=== PATIENT | female | born 1985 | race Caucasian/White ===

== ENCOUNTER 2018-07-04 20:47 | Inpatient (IN) | payer SELFPAY ==
[~2018-07-04] VITALS: Ht 172.7 cm; Wt 117.9 kg
[2018-07-04] MEDS ORDERED: LACTATED RINGERS 1,000 ML IV STA (23:06)
[2018-07-05] MEDS ORDERED: DEXT 5%/LR + PITOCIN 20UNITS/L 1,000 ML IV SCH (02:18)
[2018-07-05] MEDS ORDERED: MISOPROSTOL 100MCG TABLET VG SCH (02:30)
[2018-07-05] MEDS ORDERED: LIDOCAINE HCL 1% 20ML VIAL (Pyxis) INJ INFIL SCH (02:30)
[2018-07-05 02:38] LABS: *AMPHETAMINES SCREEN URINE NEGATIVE (NEGATIVE); *BARBITURATES SCREEN URINE NEGATIVE (NEGATIVE)
[2018-07-05 02:39] LABS: *BENZODIAZEPINES SCREEN URINE NEGATIVE (NEGATIVE); *COCAINE SCREEN URINE NEGATIVE (NEGATIVE); CANNABINOID URINE SCREEN NEGATIVE (NEGATIVE); METHADONE URINE SCREEN NEGATIVE (NEGATIVE); OPIATES URINE SCREEN NEGATIVE (NEGATIVE); PHENCYCLIDINE URINE SCREEN NEGATIVE (NEGATIVE)
[2018-07-05] MEDS ORDERED: AMPICILLIN 2,000 MG in SODIUM CHLORIDE 0.9% 100 ML IV NR (03:00)
[2018-07-05 03:26] LABS: BASOPHILS % 0.4 % (0.0-2.0); HEMATOCRIT. 36.2 % (36.0-48.0); HEMOGLOBIN. 11.7 g/dL (12.0-16.0); LYMPHOCYTES % 24.3 % (20.0-50.0); MEAN CORPUSCULAR HEMOGLOBIN 28.7 pg (28.0-32.0); MEAN CORPUSCULAR VOLUME 88.6 fL (81.0-99.0); MEAN PLATELET VOLUME 7.4 fl (7.4-10.4); MONOCYTES % 5.5 % (2.0-8.0); NEUTROPHILS % 68.8 % (40.0-76.0); PLATELET 382 x1000/uL (130-400); RED BLOOD CELL COUNT 4.08 mill/uL (4.2-5.4); RED CELL DISTRIBUTION WIDTH 14.8 % (11.6-14.6)
[2018-07-05 03:41] LABS: PARTIAL THROMBOPLASTIN TIME 28.5 sec (23.4-31.0)
[2018-07-05 03:47] LABS: CHLORIDE 108 mEq/L (98-107)
[2018-07-05 04:18] LABS: HEPATITIS B SURFACE ANTIGEN NEGATIVE
[2018-07-05] MEDS: LACTATED RINGERS 1,000 ML IV SCH ×2 (06:44→16:28)
[2018-07-05 09:24] LABS: CLARITY URINE CLEAR (CLEAR); COLOR URINE YELLOW (YELLOW); KETONES URINE NEGATIVE (NEGATIVE); LEUKOCYTE ESTERASE URINE 1+ (NEGATIVE); NITRITE URINE NEGATIVE (NEGATIVE); OCCULT BLOOD URINE 3+ (NEGATIVE); PROTEIN URINE 1+ (NEGATIVE); SPECIFIC GRAVITY URINE 1.004 (1.005-1.030); UROBILINOGEN URINE 0.2 E.U./dL (0.2-1.0)
[2018-07-05] MEDS: AMPICILLIN 1,000 MG in SODIUM CHLORIDE 0.9% 50 ML IV SCH ×3 (10:13→22:19)
[2018-07-05] MEDS: ONDANSETRON HCL 4MG/2ML INJ IV PRN (16:26)
[2018-07-05] MEDS: ACETAMINOPHEN 500MG TABLET PO PRN (16:27)
[2018-07-05] MEDS ORDERED: BUTORPHANOL TARTRATE 2 MG/ML VIAL IV NR (16:45)
[2018-07-06] MEDS: LACTATED RINGERS 1,000 ML IV SCH ×2 (01:46→09:58)
[2018-07-06] MEDS: AMPICILLIN 1,000 MG in SODIUM CHLORIDE 0.9% 50 ML IV SCH ×4 (04:22→22:02)
[2018-07-06 06:55] LABS: HEMOGLOBIN 11.1 g/dL (12.0-16.0); MEAN CORPUSCULAR HEMOGLOBIN 29.1 pg (28.0-32.0); PLATELET 332 x1000/uL (130-400); RED BLOOD CELL COUNT 3.82 mill/uL (4.2-5.4); RED CELL DISTRIBUTION WIDTH 14.5 % (11.6-14.6)
[2018-07-06 07:05] LABS: CHLORIDE 109 mEq/L (98-107)
[2018-07-06] MEDS: ACETAMINOPHEN 500MG TABLET PO PRN (19:52)
[2018-07-06] MEDS: ONDANSETRON HCL 4MG/2ML INJ IV PRN (19:52)
[2018-07-07] MEDS: AMPICILLIN 1,000 MG in SODIUM CHLORIDE 0.9% 50 ML IV SCH ×3 (03:40→15:44)
[2018-07-07] MEDS: LACTATED RINGERS 1,000 ML IV SCH ×2 (04:38→20:12)
[2018-07-07] MEDS: ACETAMINOPHEN 500MG TABLET PO PRN (14:45)
[2018-07-08] MEDS: AMPICILLIN 1,000 MG in SODIUM CHLORIDE 0.9% 50 ML IV SCH ×4 (04:21→21:49)
[2018-07-08] MEDS: LACTATED RINGERS 1,000 ML IV SCH ×3 (04:39→21:50)
[2018-07-08] MEDS: ONDANSETRON HCL 4MG/2ML INJ IV PRN (10:37)
[2018-07-08] MEDS: GUAIFENESIN-DM 200MG-20MG/10ML UDC PO PRN ×2 (16:31→21:50)
[2018-07-08] MEDS: ACETAMINOPHEN 500MG TABLET PO PRN (16:35)
[2018-07-09] MEDS: AMPICILLIN 1,000 MG in SODIUM CHLORIDE 0.9% 50 ML IV SCH ×4 (04:17→21:52)
[2018-07-09] MEDS: ACETAMINOPHEN 500MG TABLET PO PRN ×4 (04:45→21:13)
[2018-07-09] MEDS ORDERED: BUTORPHANOL TARTRATE 2 MG/ML VIAL IV PRN (05:15)
[2018-07-09 06:54] LABS: HEMATOCRIT 35.2 % (36.0-48.0); HEMOGLOBIN 11.3 g/dL (12.0-16.0); MEAN CORPUSCULAR HEMOGLOBIN 28.7 pg (28.0-32.0); MEAN CORPUSCULAR VOLUME 89.4 fL (81.0-99.0); PLATELET 331 x1000/uL (130-400); RED BLOOD CELL COUNT 3.94 mill/uL (4.2-5.4); RED CELL DISTRIBUTION WIDTH 14.9 % (11.6-14.6)
[2018-07-09] MEDS: LACTATED RINGERS 1,000 ML IV SCH ×2 (08:13→18:17)
[2018-07-09] MEDS: DOCUSATE SODIUM 100MG CAPSULE PO SCH ×2 (09:00→16:34)
[2018-07-09] MEDS ORDERED: BETAMETHASONE ACET/BETAMET 30 MG/5 ML VIAL IM ONE (12:00)
[2018-07-09] MEDS ORDERED: AZITHROMYCIN 500 MG in DEXT 5% WATER 250 ML IV ONE (12:15)
[2018-07-09] MEDS: KETOROLAC 30MG/ML VIAL IV PRN (12:17)
[2018-07-09 16:34] LABS: CHLORIDE 108 mEq/L (98-107)
[2018-07-09 16:43] LABS: T4 FREE 0.96 ng/dL (0.76-1.46)
[2018-07-09] MEDS ORDERED: INDOMETHACIN 25MG CAPSULE PO SCH (21:00)
[2018-07-10] MEDS: LACTATED RINGERS 1,000 ML IV SCH ×2 (03:15→13:20)
[2018-07-10] MEDS: KETOROLAC 30MG/ML VIAL IV PRN (03:27)
[2018-07-10] MEDS: AMPICILLIN 1,000 MG in SODIUM CHLORIDE 0.9% 50 ML IV SCH ×4 (03:30→21:31)
[2018-07-10] MEDS: AZITHROMYCIN 250 MG TABLET PO SCH (09:28)
[2018-07-10] MEDS: DOCUSATE SODIUM 100MG CAPSULE PO SCH ×2 (09:28→18:18)
[2018-07-10] MEDS: ACETAMINOPHEN 500MG TABLET PO PRN (15:05)
[2018-07-10] MEDS: ONDANSETRON HCL 4MG/2ML INJ IV PRN (15:06)
[2018-07-10] MEDS ORDERED: MISOPROSTOL 200MCG TABLET PO NR (20:15)
[2018-07-10] MEDS ORDERED: HYDROMORPHONE HCL/PF 2MG/ML CPJ IV NR (21:30)
[2018-07-10] MEDS ORDERED: DEXT 5%/LR + PITOCIN 20UNITS/L 1,000 ML IV SCH (21:40)
[2018-07-10] MEDS ORDERED: HEMORRHOIDAL SUPP PR PRN (21:45)
[2018-07-10] MEDS ORDERED: DIPHENHYDRAMINE 25MG CAPSULE PO PRN (21:45)
[2018-07-10] MEDS ORDERED: IBUPROFEN 800MG TABLET PO PRN (21:45)
[2018-07-10] MEDS ORDERED: IBUPROFEN 400MG TABLET PO PRN (21:45)
[2018-07-10] MEDS ORDERED: GLYCERIN/WITCH HAZEL LEAF MEDICATED PAD TOP PRN (21:45)
[2018-07-10] MEDS ORDERED: OXYCODONE HCL/ACETAMINOPHEN 5/325MG TABLET PO PRN (21:45)
[2018-07-10 23:36] VITALS: BP 112/69
[2018-07-10] MEDS ORDERED: PREN-55 MT (23:57)
[2018-07-11] VITALS: BP 121/76
[2018-07-11 01:44] LABS: BASOPHILS % 0.1 % (0.0-2.0); EOSINOPHILS % 0.2 % (0.0-5.0); HEMATOCRIT. 32.6 % (36.0-48.0); HEMOGLOBIN. 10.6 g/dL (12.0-16.0); LYMPHOCYTES % 11.6 % (20.0-50.0); MEAN CORPUSCULAR HEMOGLOBIN 29.1 pg (28.0-32.0); MEAN CORPUSCULAR VOLUME 89.4 fL (81.0-99.0); MONOCYTES % 5.4 % (2.0-8.0); NEUTROPHILS % 82.7 % (40.0-76.0); PLATELET 360 x1000/uL (130-400); RED BLOOD CELL COUNT 3.65 mill/uL (4.2-5.4); RED CELL DISTRIBUTION WIDTH 14.8 % (11.6-14.6)
[2018-07-11 04:00] VITALS: BP 125/82
[2018-07-11 08:00] VITALS: BP 95/55
[2018-07-11] MEDS ORDERED: TETANUS, DIPHTHERIA, PERTUSSIS VAC/PF 0.5ML (>7YR OLD) IM ONE (08:00)
[2018-07-11] MEDS ORDERED: PRENATAL VIT/FE FUMARATE/FA TABLET PO SCH (09:00)
[2018-07-11] MEDS: AZITHROMYCIN 250 MG TABLET PO SCH (09:05)
[2018-07-11] MEDS: METHYLERGONOVINE MALEATE 0.2MG TABLET PO SCH ×3 (09:06→17:39)
[2018-07-11] MEDS: FERROUS SULFATE 325MG TABLET PO SCH ×3 (09:06→17:39)
[2018-07-11] MEDS ORDERED: INFLUENZA VIRUS VACCINE(AFLURIA) 0.5ML SYR IM ONE (10:00)
[2018-07-11] MEDS ORDERED: MEDROXYPROGESTERONE ACETATE 150MG/ML VIAL IM SCH (11:00)
[2018-07-11 12:00] VITALS: BP 99/62
[2018-07-11 15:12] VITALS: BP 105/64
[2018-07-11 16:00] VITALS: BP 110/60
[2018-07-11] MEDS ORDERED: DOCUSATE SODIUM 100MG CAPSULE PO SCH (21:00)
[2018-07-12 13:07] LABS: ANA IFA Negative (.)
== END 2018-07-11 19:45 | disposition home or self-care (01) | DRG 560 ==
LOC: OBSVTOIN 20:47 → 8EST NSY 20:47 → OB TRIAGE 23:04 → 8 EST LDRP 07-05 02:11 → 8 EST A/PP 07-05 15:02 → 6EST 07-10 22:40
PROVIDERS: ADMIT Specialist; ATTEND Specialist
PROC: 10E0XZZ Delivery of Products of Conception, External Approach (ICD-10-PCS; principal; 2018-07-10)
DX: O42.912 Preterm premature rupture of membranes, unspecified as to length of time between rupture and onset of labor, second trimester (principal); O60.12X0 Preterm labor second trimester with preterm delivery second trimester, not applicable or unspecified; O32.1XX0 Maternal care for breech presentation, not applicable or unspecified; E66.9 Obesity, unspecified; O99.214 Obesity complicating childbirth; Z51.5 Encounter for palliative care; Z3A.22 22 weeks gestation of pregnancy; Z37.1 Single stillbirth
CPT/HCPCS: 36415; 76805; 76856; 80305; 83036; 84439; 84443; 85027; 86038; 86256; 86592; 86703; 86762; 86850; 86900; 87340; 88307; 90686; 90715; 99281; G0378; J0290; J0456; J0595; J1050; J1170; J1885; J2405; J2590; J7040; J7050; J7060; J7120